=== PATIENT | female | born 2005 | race Caucasian/White ===

== ENCOUNTER 2023-06-03 13:15 | Outpatient (REF) | payer OTHER, SELFPAY ==
[2023-06-04 23:30] LABS: Prolactin 20.5 ng/mL (2.8-29.2)
== END 2023-06-03 13:16 | disposition home or self-care (01) ==
LOC: NPINS 13:15
PROVIDERS: Visit Provider Internal Medicine Endocrinology, Diabetes & Metabolism
DX: E22.1 Hyperprolactinemia (principal)
CPT/HCPCS: 84146

== ENCOUNTER 2023-07-01 10:57 | Outpatient (REF) | payer OTHER, SELFPAY ==
[2023-07-03 12:38] LABS: Prolactin 8.5 ng/mL (2.8-29.2)
== END 2023-07-01 10:58 | disposition home or self-care (01) ==
LOC: NPINS 10:57
PROVIDERS: Visit Provider Internal Medicine Endocrinology, Diabetes & Metabolism
DX: E22.1 Hyperprolactinemia (principal)
CPT/HCPCS: 84146

== ENCOUNTER 2024-08-27 09:08 | Outpatient (CLI) | payer OTHER, SELFPAY | END 2024-08-27 09:09 | disposition home or self-care (01) | PROVIDERS: PCP Internal Medicine Endocrinology, Diabetes & Metabolism; Visit Provider Internal Medicine Endocrinology, Diabetes & Metabolism | DX: E22.1 Hyperprolactinemia (principal) | CPT/HCPCS: 36415; 84146 ==

== ENCOUNTER 2025-05-14 09:28 | Outpatient (REF) | payer OTHER, SELFPAY ==
--- OUTSIDE RECORDS SUMMARY | 2025-05-15 00:08 | XMS_ITS | Clinical Summary ---
Author Organization [facility] Address [id number] [address] Care Team Providers Care Digital Archivist Name Role Phone Yola Varma MD Primary Care Provider [phone] Source Comments You are receiving this document as you are listed as the primary care provider,follow-up provider, or the patient has been referred to you for consultation.This is in compliance with the Medicare and[facility]centive [facility],which states Providers who transition their patient to another setting of careor provider of care or refers their patient to another provider of care shouldprovide summary care record for each transition of care or referral. Synthorx Medications AMNESTEEM 40 MG capsule Take 40 mg by mouth daily. 1 Active mupirocin (BACTROBAN) 2 % ointment APPLY 2 TO 3 TIMES DAILY TO AREAS WITH SKIN INFECTION 1 Active tretinoin (RETIN-A) 0.025 % cream Apply topically every evening. Active spironolactone (ALDACTONE) 50 MG tablet Take 1 Tablet (50 mg) by mouth two times a day. Active Active Problems Problem Noted Date Diagnosed Date Abnormal ultrasound of pelvis 09/17/2021 Irregular uterine bleeding 09/17/2021 Family history of PCOS 09/17/2021 Vaginal bleeding between periods 06/21/2021 Asthma 05/18/2019 Immunizations Immunization Administration Dates Next Due 4vHPV (Gardasil) 08/17/2014,04/14/2014 9vHPV (Gardasil 9) 08/08/2015 DTaP 05/07/2008, 5,2003,2002,2003 Flu Vac (3+ yrs) 07/02/2007,06/28/2004 HepA Ped/Adol (1-18 yrs) 04/14/2014,05/01/2012 HepB Ped/Adol (0-18 yrs) 11/20/2004 Hib (ActHIB) 04/06/2004 Hib/HBV 2003,2003 IPV (Polio) 05/07/2008, 4,2003,2002 Influenza IIV4 (Quadrivalent ) 0.5mL (84296) 05/30/2021,04/29/2020,11/09/2019 Influenza LAIV (Nasal, 2-49 yrs) 015,06/02/2013,06/12/2010,2008 Influenza LAIV3 2-49 years (Flumist) 05/01/2012, 06/12/2010,05/07/2008 Influenza, Unspecified Formulation 06/01/2009 MCV4 Menveo 2m.+ (two vial) 11/09/2019, 4 MMR 04/13/2009,02/05/2005 Pfizer Monovalent 12+ Purple Top 12/22/2020,11/16 Pneumococcal 7, PED 08/22/2004,2003,2002 Tdap 04/14/2014 Varicella 05/09/2010,04/13/2009,10/21/2006 Family History Medical History Relation Name Comments Depression Father Hypertension Father Anxiety Mother Alzheimer's Maternal Grandmother Anxiety Maternal Grandmother Cancer, Other Maternal Grandmother Cancer, Thyroid Maternal Grandmother Dementia Maternal Grandmother Cancer, Melanoma Paternal Grandfather Diabetes, Type II Paternal Grandfather Dementia Paternal Grandmother Cancer, Colon Paternal Uncle Amblyopia/Strabismus Negative Family History Cataract Negative Family History Diabetes Negative Family History Glaucoma Negative Family History Macular Degeneration Negative Family History Retinal Detachment Negative Family History Relation Name Status Comments Father Alive Mother Alive Maternal Grandfather Maternal Grandmother Alive Paternal Grandfather Alive Paternal Grandmother Paternal Uncle Social History Tobacco Use Types Packs/Day Years Used Date Smoking Tobacco: Never Smokeless Tobacco: Never Alcohol Use Standard Drinks/Week Comments Never 0 (1 standard drink = 0.6 oz pur e alcohol) PHQ-2 Answer Date Recorded PHQ-2 Score 2 05/30/2021 Comments No Sex and Gender Information Value Date Recorded Sex Assigned at Female 08/22/2021 8:49 PM COUNSELOR EDUCATION PROFESSOR Legal Sex Female 6:04 AM CDT Gender Identity Female 08/22/2021 8:49 PM COUNSELOR EDUCATION PROFESSOR Sexual Orientation Don't know 08/22/2021 8: 49 PM COUNSELOR EDUCATION PROFESSOR Last Filed Vital Signs Vital Sign Reading Time Taken Comments Blood Pressure 119/71 06/21/2021 4:03 PM CDT Pulse 72 06/21/2021 4:03 PM CDT Temperature - - Respiratory Rate - - Oxygen Saturation - - Inhaled Oxygen Concentration - - Weight 77.1 kg (170 lb) 08/13/2021 1:10 PM COUNSELOR EDUCATION PROFESSOR p t reported Height 166.4 cm (5' 5.5) 08/13/2021 1:10 PM COUNSELOR EDUCATION PROFESSOR Body Mass Index 27.86 08/13/2021 1:10 PM COUNSELOR EDUCATION PROFESSOR Plan of Treatment Health Maintenance Due Date Last Done Comments Cervical Cancer Screening Due 2003 Chlamydia 2003 Hep C Screening (Preventive Services) 2003 MenB Immunization Discussion 2003 Asthma ACT (score of 20 or higher) 2007 HIV Screening (Preventive Services) 2019 Adult Preventive Visit 2021 COVID-19 Vaccine ( season) 2025 05/29/2022, 07/23/2021, 12/22/2020, Additional history exists Influenza Vaccine (#1) 2025 , 05/30/2021, 04/29/2020, Additional history exists DTaP/Tdap/Td Vaccine (8 - Tdap) 11/14/2032 11/14/2022, 04/14/2014, 05/07/2008, Additional history exists Zoster/Shingles Vaccine (1 of 2) 2053 Hib Vaccine Completed 04/06/2004, 07/18, 2003 Pneumococcal Vaccine Aged Out 08/22/2004, 2003, 2003 No longer eligible based on patient's age to complete this topic HepB Vaccine Completed 11/20/2004, 07/18, 2003 IPV (Polio) Vaccine Completed 05/07/2008, 2003, 2003, Additional history exists Varicella Vaccine Completed 05/09/2010, , 10/21/2006 HepA Vaccine Completed 04/14/2014, 05/01/2012 HPV Vaccine Completed 08/08/2015, 07/20, 04/14/2014 MCV4 Vaccine Completed 11/09/2019, 04/14/2014 Insurance SEL[employer]GED C[employer] Care Teams Digital Archivist Relationship Specialty Start Date End Date Yola Varma MD [id number] [place] [id number] PCP - General 08/09/14
--- OUTSIDE RECORDS SUMMARY | 2025-05-15 00:08 | XMS_ITS | Data Portability ---
Author Organization [facility] [employer], [id number] Address [address] [place] [address] Care Team Providers Care Picker / Packer Name Role Phone PEBBLES BOLDEN Primary Care Provider Assessment Encounter Date Assessment Date Assessment LastModified by Organization Details LastModified Time 12/09/2022 12/09/2022 This service was provided using telemedicine including synchronous audio and/or video approved technology. The patient verbally Consents to telemedicine services, virtual check-ins and evisits. The patient confirms she is at home or private location Telemedicine consultation via Synchronous Audio and Video Call. I spent a total of 35 minutes providing care for this patient including: preparing to see the patient, obtaining a medical history, completing a medically appropriate physical exam, completing documentation of visit information and plans in the EMR, counseling the patient and/or caregiver regarding her diagnosis, treatment options and follow up plans, as well as any necessary communication of subsequent test results to the patient, , , Assessment and Plan for this visit include the following: I spent a total of minutes providing care for this patient including: preparing to see the patient, obtaining a medical history, completing a medically appropriate physical exam, completing documentation of visit information and plans in the EMR, counseling the patient and/or caregiver regarding her diagnosis, treatment options and follow up plans, as well as any necessary communication of subsequent test results to the patient, , , [email or web address] Not available 12/09/2022 12:01:55 Plan of Treatment Reminders Order Date Submit Date Provider Last Modified By Organization Details Last Modified Time Details Appointments None recorded. Lab test, urine 2024 025 [email or web address] [id number] aska, [address] [facility], [address], [place], [address], 08:11:37 Pap test, slide(s), cervical [address] [facility], [address], [address], [place], [address], 11:07:23 prolactin, serum [address] [facility], [address], [address], [place], [address], 01:45:41 TSH, serum or plasma [address] [facility], [address], [address], [place], [address], 01:45:37 Referral None recorded. Procedures None recorded. Surgeries None recorded. Imaging None recorded. Medication Orders Cytotec 200 mcg tablet 2024 025 [id number], [address] [place], [place], [id number], 15:16:59 Patient TargetsNo targets recorded. Patient Instructions Encounter Date Encounter Id Patient Instructions Last Modified By Organization Details Last Modified Time 11/14/2022 [id number] Please monitor your blood pressure. If either number continues to be elevated above 140 and/or 90, then I would recommend making an appointment with a primary doctor for evaluation. [email or web address] Not available 11/14/2022 14:57:52 - Encouraged breast self-awareness and monthly breast exams. - Calcium and vitamin D intake discussed. - Encouraged regular exercise. - Discussed cervical cancer screening guidelines. [email or web address] Not available 11/14/2022 13:38:25 Reason for Referral None Reported. Results Created Date Observation Date Name Description Value Unit Range Abnormal Flag Note LastModifiedBy Organization Detail LastModifiedTime 11/15/1911/14/2022 TSH WITH REFLE X TO FREE T4 TSH 2.05 uIU/m L 0.50-4 .30 Not Available [facility] [address], [place], [address], 11/15/2022 01:45:37 11/15/19 23 11/14/2022 PROLA CTIN LEVEL prolactin 37 NG/mL 5-23 high Not Available [facility] [address], [place], [address], 11/15/2022 01:45:41 09/22/19 25 09/22/2024 GYNEC OLOGI C CYTOL OGY PAP SMEAR gynecologic cytology SEE RESULT S BELOW SPECI MEN SOURC E [facility] Cervi x BKR LAB AP TRANSPORT RN INTER PRETA TION: Negat shahid for Intra epith elial Lesmichael n or John caro (NILM ) Elect charbel lawson beatriz d by Brian Dejesus, CT (ASCP ) on 2024 at 10:05 AM Path repor [email or web address] ments Imp Spec: Papan icola ou Test Limit ation s: Cervi michelle cytol ogy is a scree cassandra test with limit ed sensi tivit y, and regul ar scree cassandra is criti michelle for cance r preve ntion . Pap tests are prima rily effec tive for the diagn osis/ preve ntion of squam ous cell carci noma, not adeno carci noma or other cance rs. BKR LAB AP TRANSPORT RN ADEQU ACY: Satis facto ry for evalu ation , endoc ervic al/tr ansfo rmati on zone compo nent absen t Path repor t.rel evant Hx Spec: none BKR LAB AP LMP: BKR LAB AP HPV REFLE X: Yes if ASCUS BKR LAB AP PREVI OUS ABNOR MAL: No BKR LAB AP PREVI OUS ABNL DX: N/A Path repor [email or web address] ments Imp Spec: The techn ical compo nent of this testi ng was compl eted at [facility] . Stain contr ols for all stain s resul blanka withi n this repor t have been revie wed and show appro priat e react ivity . Not Available [address], [place], [address], 09/27/2024 11:07:23 09/22/19 25 09/22/2024 pregn russell test, urine Unknown Analyte negati ve Not Available [address], [place], [address], 09/22/2024 15:22:17 09/22/1909/22/2024 pregn russell test, urine Unknown Analyte Negati ve Not Available [address] ask [address] [facility] [address], [place], [address], 09/22/2024 15:22:17 Result Notes None recorded. Problems Name Problem SNOMED Code Status Onset Date Resolution Date Notes Provider Name and Address Organization Details Recorded Time Acne 58900880 Active 022 Crissy carranza [place] - [facility] [employer] 2 15:19:52 Irregular periods 34854103 Active 023 COREY HOLM [facility] [address] [facility],[address], [place], [address] , [facility] [employer] 3 14:50:17 Problem Notes None recorded. Procedures Surgical History Date Name Laterality Status Provider Name and Address Organization Details Recorded Time 5 IUD Insertion Procedure Note ([facility]) [place] [id number] [facility],[address], [place], [address], [facility] [employer] 09/24/2024 15:27:19 5 Date of Last Pap Smear completed Holden Wilkerson [place] [facility] [employer] 09/27/2024 13:54:26 extraction of wisdom tooth completed Margarita Hedrick (TERMED) [facility] [employer] 10/23/2021 15:29:13 Imaging Results None recorded. Procedure Notes None recorded. Medical Equipment None Reported. Allergies Allergen ID Allergen Name Allergen Category Reaction Reaction Severity Criticality Documentation Date Start Date Code Code System Note Provider Name and Address Organization Details Recorded Time [id number] cat dander environme nt itching Not available Not available 10/23/2021 [place] [facility] [employer] 15:19:26 No known drug allergies Medications Name Sig Start Date Stop Date Status Note LastModified by Organization Details LastModified Time tretinoin 0.025 % topical cream APPLY TOPICALLY TO THE AFFECTED AREA EVERY NIGHT TOLERATED 09/18 completed Not Available Not Available Not Available tretinoin 0.05 % topical cream APPLY PEA SIZED AMOUNT TOPICALLY TO FACE EVERY NIGHT TOLERATED . FOLLOW WITH MOISTURIZ ER active Not Available Not Available No t Available cephalexin 500 mg capsule TAKE ONE CAPSULE BY MOUTH BY MOUTH THREE TIMES DAILY UNTIL GONE 10/23 completed Not Available Not Available Not Available misoprostol 200 mcg tablet Take 2 tablets by oral route as directed. 09/22 completed Not Available Not Available Not Available mupirocin 2 % topical ointment APPLY 2 TO 3 TIMES DAILY TO AREAS WITH SKIN INFECTION 10/23 completed Not Available Not Available Not Available bromocripti ne 2.5 mg tablet TAKE ONE-HALF TABLET BY MOUTH DAILY active Not Available Not Available No t Available spironolact one 50 mg tablet TAKE 1 TABLET BY MOUTH IN THE AM AND 2 IN THE EVENING active Not Available Not Available No t Available clindamycin 1 % lotion APPLY THIN LAYER TOPICALLY TO FACE EVERY DAY IN THE MORNING 11/13 completed Not Available Not Available Not Available Amnesteem 40 mg capsule TAKE 1 CAPSULE BY MOUTH TWICE DAILY 10/23 completed Not Available Not Available Not Available metronidazo le 1 % topical gel APPLY TOPICALLY TO FACE EVERY MORNING active Not Available Not Available No t Available chlorhexidi ne gluconate 0.12 % mouthwash 10/23 completed Not Available Not Available Not Available Claravis 30 mg capsule TAKE 2 CAPSULES BY MOUTH TWICE DAILY FOR ACNE 10/23 completed Not Available Not Available Not Available Kyleena 17.5 mcg/24 hr (up to 5 years) 19.5 mg intrauterin e device Take by intrauter ine route. 2024 active Not Available Not Available Not Avai lable ID NOW COVID-19 Test Kit TEST DIRECTED 10/23 completed Not Available Not Available Not Available Vitals Date Recorded Body height Body mass index (BMI) Body weight Systolic And Diastolic Provider Name and Address Organization Details Last Updated DateTime 09/21/2024 165.1 cm 31.4 kg/m2 16593.52 g 132/82 mm[Hg] Emilyvalencia Jaramillo (TERMED) [facility] [employer] 09/21/2024 14:11:24 Date Recorded Body height Body mass index (BMI) Body weight Systolic And Diastolic Provider Name and Address Organization Details Last Updated DateTime 09/22/2024 165.1 cm 31.8 kg/m2 56561.14 g 128/86 mm[Hg] Jadyn Wilkerson [facility] [employer] 09/22/2024 15:22:57 Date Recorded Body weight Body mass index (BMI) Body mass index (BMI) [Percentile] Per age and sex Body height Systolic And Diastolic Provider Name and Address Organization Details Last Updated DateTime 11/14/2022 08634.0 3 g 29.8 kg/m2 93 % 165.1 cm 140/78 mm[Hg] Margarita Hedrick (TERMED) [facility] [employer] 14:25:47 Date Recorded Body height Body mass index (BMI) Body weight Systolic And Diastolic Provider Name and Address Organization Details Last Updated DateTime 11/16/2024 165.1 cm 31.5 kg/m2 33521.39 g 140/80 mm[Hg] Alana Story [facility] [employer] 11/16/2024 16:43:24 Date Recorded Body height Provider Name an d Address Organization Details Last Updated DateTime 12/09/2022 165.1 cm Jadyn Wilkerson [facility] OB/G YN 12/09/2022 11:28:50 Social History Question Answer Notes LastModified by Organizat ion Details LastModified Time Tobacco Smoking Status Never Smoker Crissy carranza, [facility] [employer] 10/23/2021 15:19:26 Do You Have An Advance Directive? No Information not available 09/21/2024 What Is Your Level Of Caffeine Consumption? Occasional Information not available 09/21/2024 What Type Of Diet Are You Following? REGULAR [email or web address] Information not available 11/14/2022 How Many Times Per Week Do You Exercise? 3-4 Times Per Week [email or web address] Information not available 11/14/2022 History Of Domestic Violence No [email or web address] Information no t available 11/14/2022 What Is Your Relationship Status? Single Information not available 10/23/2021 Are You Sexually Active? No Information not available 10/23/2021 Sex: Unknown Functional Status Question Answer Note LastModified by Organizat ion Details LastModified Time Do you use any illicit or recreational drugs? No Information not available 09/21/2024 Do you or have you ever used any other forms of tobacco or nicotine? No Information not available 09/21/2024 What is your level of alcohol consumption? None [email or web address] Information not available 10/23/2021 What is your occupation? Student Information not available 09/21/2024 Do you or have you ever used e-cigarettes or vape? Never used electronic cigarettes Information not available 09/21/2024 What is your exercise level? Moderate [email or web address] Information not available 11/14/2022 Mental Status None recorded. Family History Relationship Description Onset Age of this Age Resolved Age Notes LastModified by Organization Details LastModified Time Paternal Grandfather Hypertensive disorder eayotte Not available 2021 15:19:26 Father Depressive disorder eayotte Not available 2021 15:19:26 Father Hypertensive disorder eayotte Not available 2021 15:19:26 Maternal Grandfather Diabetes mellitus eayotte Not available 2021 15:19:26 Maternal Grandfather Heart disease pt. added direct ly (09/18) [email or web address] Not available 09/18/2024 17:48:01 Unspecified Relation Pulmonary embolism 30 Patern al cousin - cause of (was on contro l) [email or web address] Not available 11/16/2024 16:31:19 Maternal Grandmother Disorder of thyroid gland pt. added direct ly (09/18) [email or web address] Not available 09/18/2024 17:47:31 Paternal Uncle Cerebrovascu lar accident pt. added direct ly (09/18) [email or web address] Not available 09/18/2024 17:47:46 Medical History Condition Response Dermatology-Acne Y Psych- Anxiety Disorder Y Pulmonary- Asthma Y Gynecological History Statement/Question Response Sexually Active N History of Abnormal PAP N Date of LMP 10/01/2024 Y History of Sexually Transmitted Infectio n N HPV Vaccine Complete Current Control Method IUD Menstrual Cycle Length (days) 28 Date of Last Pap Smear 09/22/2024 13 Obstetrics History GPAL:G 0 P 0 0 0 0 Type Value Multiple Births 0 Full Term 0 Induced 0 Spontaneous 0 Premature 0 Living 0 Ectopics 0 Total 0 Immunizations Vaccine Type Date Status Note Provider Nam e and Address Organization Details Recorded Time Tdap 3 completed Kenisha Matt null, [place] - [facility] [employer] 11/14/2022 16:48:57 Hib-Hep B 3 completed Emily Jaramillo (TERMED) [place], [place] [facility] [employer] 09/20/2024 14:38:36 Hib-Hep B 3 completed Emily Jaramillo (TERMED) [place], [place] [facility] 09/20/2024 14:38:36 HPV9 5 completed Emily Jaramillo (TERMED) [place], [place] [facility] [employer] 09/20/2024 14:38:36 IPV 4 completed Emily Wesleygness (TERMED) [place], [place] [facility] [employer] 09/20/2024 14:38:36 IPV 8 completed Emily Wesleygness (TERMED) [place], [place] [facility] 09/20/2024 14:38:36 IPV 3 completed Emily Jaramillo (TERMED) [place], [place] [facility] [employer] 09/20/2024 14:38:36 IPV 3 completed Emily Wesleygness (TERMED) [place], [place] [facility] [employer] 09/20/2024 14:38:36 Influenza, live, trivalent, intranasal, PF 2 completed Emily Jaramillo (TERMED) null, [place] - [facility] [employer] 09/20/2024 14:38:36 Influenza, live, trivalent, intranasal, PF 8 completed Emily Kregness (TERMED) null, [facility] 09/20/2024 14:38:36 Influenza, live, trivalent, intranasal, PF 0 completed Emily Kregness (TERMED) null, [facility] 09/20/2024 14:38:36 MMR 5 completed Emily Kregness (TERMED) null, [facility] 09/20/2024 14:38:36 MMR 9 completed Emily Kregness (TERMED) null, [facility] 09/20/2024 14:38:36 COVID-19, mRNA, LNP-S, PF, 30 mcg/0.3 mL dose 1 completed Emily Kregness (TERMED) null, [facility] 09/20/2024 14:38:37 COVID-19, mRNA, LNP-S, PF, 30 mcg/0.3 mL dose 1 completed Emily Kregness (TERMED) null, [facility] 09/20/2024 14:38:37 COVID-19, mRNA, LNP-S, PF, 30 mcg/0.3 mL dose 1 completed Emily Kregness (TERMED) null, [facility] 09/20/2024 14:38:37 COVID-19, mRNA, LNP-S, bivalent, PF, 30 mcg/0.3 mL dose 2 completed Emily Kregness (TERMED) null, [facility] 09/20/2024 14:38:37 pneumococcal conjugate PCV 7 5 completed Emily Kregness (TERMED) null, [facility] 09/20/2024 14:38:37 pneumococcal conjugate PCV 7 3 completed Emily Kregness (TERMED) null, [facility] 09/20/2024 14:38:37 pneumococcal conjugate PCV 7 3 completed Emily Kregness (TERMED) null, [place] - [facility] [employer] 09/20/2024 14:38:37 influenza, unspecified formulation 9 completed Emily Kregness (TERMED) null, [facility] [employer] 09/20/2024 14:38:37 Tdap 4 completed Emily Kregness (TERMED) null, [facility] 09/20/2024 14:38:37 varicella 7 completed Emily Kregness (TERMED) null, [facility] [employer] 09/20/2024 14:38:37 varicella 9 completed Emily Kregness (TERMED) null, [facility] [employer] 09/20/2024 14:38:37 varicella 0 completed Emily Kregness (TERMED) null, [facility] 09/20/2024 14:38:37 Influenza, split virus, trivalent, preservative 4 completed Emily Kregness (TERMED) null, [facility] [employer] 09/20/2024 14:38:37 Influenza, split virus, trivalent, preservative 7 completed Emily Kregness (TERMED) null, [facility] 09/20/2024 14:38:37 HPV, quadrivalent 4 completed Emily Kregness (TERMED) null, [facility] [employer] 09/20/2024 14:38:37 HPV, quadrivalent 4 completed Emily Kregness (TERMED) null, [facility] [employer] 09/20/2024 14:38:37 Hep B, adolescent or pediatric 5 completed Emily Kregness (TERMED) null, [facility] [employer] 09/20/2024 14:38:37 Hep A, ped/adol, 2 dose 4 completed Emily Kregness (TERMED) null, [facility] [employer] 09/20/2024 14:38:37 Hep A, ped/adol, 2 dose 2 completed Emily Kregness (TERMED) null, [place] - [facility] 09/20/2024 14:38:37 Hib (PRP-T) 4 completed Emily Kregness (TERMED) [place], [place] [employer] 09/20/2024 14:38:37 Meningococcal MCV4O 0 completed Emily Kregness (TERMED) [place] [employer] 09/20/2024 14:38:37 Meningococcal MCV4O 4 completed Emily Kregness (TERMED) [place] [employer] 09/20/2024 14:38:37 DTaP 4 completed Emily Kregness (TERMED) [place], [place] [employer] 09/20/2024 14:38:37 DTaP 5 completed Emily Kregness (TERMED) null, [place] - [facility] 09/20/2024 14:38:37 DTaP 8 completed Emily Kregness (TERMED) [place], [place] [employer] 09/20/2024 14:38:37 DTaP 3 completed Emily Kregness (TERMED) [place] [employer] 09/20/2024 14:38:37 DTaP 3 completed Emily Kregness (TERMED) [place] [employer] 09/20/2024 14:38:37 Influenza, live, quadrivalent, intranasal 3 completed Emily Kregness (TERMED) [place] [facility] [employer] 09/20/2024 14:38:37 Influenza, live, quadrivalent, intranasal 5 completed Emily Kregness (TERMED) [place], [place] [employer] 09/20/2024 14:38:37 Influenza, split virus, quadrivalent, PF 0 completed Emily Kregness (TERMED) [place], [place] [employer] 09/20/2024 14:38:37 Influenza, split virus, quadrivalent, PF 0 completed Emily Kregness (TERMED) null, [facility] [employer] 09/20/2024 14:38:37 Influenza, split virus, quadrivalent, PF 2 completed Emily Kregness (TERMED) null, [facility] [employer] 09/20/2024 14:38:37 Influenza, split virus, quadrivalent, PF 1 completed Emily Kregness (TERMED) null, [facility] [employer] 09/20/2024 14:38:37 meningococcal B, OMV 4 completed Jadyn Oestreich null, [facility] [employer] 09/22/2024 15:16:42 meningococcal B, OMV 4 completed Jadyn Oestreich null, [facility] [employer] 09/22/2024 15:16:42 COVID-19, mRNA, LNP-S, PF, jacques-sucrose, 30 mcg/0.3 mL 3 completed Jadyn Oestreich null, [facility] [employer] 09/22/2024 15:16:42 Influenza, split virus, quadrivalent, PF 3 completed Jadyn Oestreich null, [facility] [employer] 09/22/2024 15:16:42 Influenza, MDCK, trivalent, PF 5 completed Jadyn Oestreich null, [facility] [employer] 09/22/2024 15:16:42 Past Encounters Encounter ID Performer Location Encounter Start Date Encounter Closed Date Diagnosis/Indication Diagnosis SNOMED-CT Code Diagnosis ICD10 Code Diagnosis IMO Codes Diagnosis Note [id number] JUANA FARRELL MD [id number] T_[facility] NKA [address] [facility] [address] [place] [address] 10/23/2021 15:07:56 10/23/2021 16:24:04 Irregular periods 26033981 N92.6 Reviewed diagnosis of PCOS. Discussed implicatio ns for marketing content specialist health including adverse lipid effects and increased risk of Type II diabetes. Reviewed risks of endometria l hyperplasi a and the need for menses at least every 3 months for endometria l protection . Will check labs for PCOS today and have patient return for pelvic US. [id number] JUANA FARRELL MD [id number] [address] [facility] [address] [place] [address] 11/14/2022 14:13:02 11/14/2022 14:56:04 Gynecologic examination 48615742 Z01.419 Pap not indicated. Reviewed vaccines. UTD. Pt checking insurance for TDAP vaccine. Can come back to clinic for TDAP if covered. Acne 89303409 L70.9 Working with dermatolog y. Irregular periods 643832 07 N92.6 Discussed etiologies of irregular periods. Pt hx of hyperprola ctinemia.W ill draw hormones for irregular cycles. Rec. she follow up with endocrine if prolactin still elevated.D iscussed spironolac tone can cause irregulari ties in cycle as well.Given informatio n on hormonal therapies for cycles. Pt uninterest ed in this time. Elevated blood-pressure reading without diagnosis of hypertension 145641815 R03.0 Discussed BP elevated last and this year. Fam hx of hypertensi on.Pt father has BP cuff at home. Recommend she take a few at home and follow up if Bps elevated. [id number] COREY HOLM, ROHIT- [id number] T_[facility] [address] [facility],[place] [address] [place] [address] 12/09/2022 11:18:08 12/09/2022 12:19:00 Contraception education 181551286 Z30.09 We discussed control options including hormonal IUD s , copper IUD, implantabl e savanna, oral contracept shahid pills, Depo-Prove ra, a progestin- only pill, vaginal rings, and condoms. The risks and benefits of each option where discussed with the patient.Pt had nml BPs with home monitoring .Discussed hyperprola ctinemia can cause menstrual irregulari ties - appt w/ endo in December.Intere sted in IUD or OCP/POP. Will reach out with what option she desires. Discussed Mirena, Kyleena, and Paragard IUD's. Discussed common side effects and risks of each. Reviewed common bleeding patterns. Discussed the insertion process. Recommend she check insurance coverage prior to insertion. If she wants to proceed, she will call for an appointmen t during her menses. Planning Kyleena IUD. [id number] JUANA FARRELL MD [id number] DEYANIRA KUMAR [address] [facility] [address] [place] [address] 09/21/2024 13:59:07 09/21/2024 15:32:51 Contraception education 557369127 Z30.09 Discussed risks and benefits of Kyleena IUD. Reviewed common bleeding patterns. Discussed insertion process. Reviewed risks of bleeding, infection, and uterine perforatio n. Recommend she check insurance coverage prior to insertion. If she wants to proceed, she will call for an appointmen t during her menses. [id number] JUANA FARRELL MD [id number] T_[place] [address] [facility] [address] [place] [address] 09/22/2024 15:00:17 09/22/2024 15:39:16 Insertion of intrauterine contraceptive device [id number] Z30.430 IUD inserted today without difficulty . Counseled on expectatio ns for bleeding and cramping. Discussed reasons to call or return to clinic. Screening for malignant neoplasm of cervix [id number] Z12.4 [id number] JUANA FARRELL MD [id number] [facility] [address] [facility] [address] [place] [address] 11/16/2024 16:31:12 11/16/2024 17:33:48 IUD check [id number] Z30.431 Strings seen today. Discussed bleeding, starting to slow. Will monitor over next two weeks and call to schedule pelvic ultrasound if it is not improving significan tly. Health Concerns Section Related Observation LastModified by Organization Detai ls LastModified Time None Recorded Concern Status LastModified by Organization Details LastModified Time None Recorded Advance Directives Directive N: Payers Insurance Date Sequence Insurance Name Policy Number Policy [place] Covered Member ID [place] Member ID Guarantor Name 11/16/2024 1 [id number] Alesia Ring h [id number] Alesia Felix Notes Date Note Type Note Provider Name and Address Organization Details Recorded Time 11/15/19 23 text/htm l Annual Premenopausal ([facility])Reported by PatientHPIFor patient relationship to practice, patient reportsestablished patient. For current medical history, patient reportsno active medical problems. For relevant family history, patient reportsno family history of breast cancer,no family history of ovarian cancer,no family history of uterine cancer,no family history of colon cancer, andno family history of blood clots/dvt. For menstrual history, patient reportsfrequency of menses: monthly. For contraceptive method, patient reportsabstinenceandnothing. For sexually active, patient reportsno: by choice. For sti screen, patient reportsdeclines. For pap smear +/- hpv cotesting, patient reportsnot applicable.Pt would like the tdap vaccine today. She is wondering what other vaccines she might be needing. Pts derm recommended genetic testing for clotting disorders. Pt reports her cycle has been somewhat irregular the past two months after starting spironolactone. Pt had elevated prolactin at her last visit with us- she never ended up seeing endocrine; AH/MA Going to school at [employer].Irregular periods. Periods have always been irregular. Days range from 14-35 days. lasting 6-8 days.Not sexually active.Feels like spironlactone made periods more irregular.Cousin had PE on OCP and passed. Wants testing done for blood clotting disorders.Last year elevated prolactin. Never followed up with Endocrine.Would like to discuss vaccinations. Hereditary Cancer Risk AssessmentHPI.LowRisk The patient completed the familial health questionnaire. She is at low risk for a genetic cancer syndrome. Imported from [employer] on 11/14/2022 COREY HOLM, [facility] [address] [facility],[address], [place], [address], [place] - [facility] [employer] 11/14/2022 16:45:07 12/10/19 23 text/htm l Telemedicine HPI UEHRCReported by PatientHPIFor telehealth visit for, patient reportscontraception care. For modality, patient reportsunified secure nurys. For patient information verified, patient reportspatient name gilda radford-paytonverified,patient 2003verified, andpatient call back number verified. Contraception Counseling ([facility])Reported by PatientHPIFor reason for visit, patient reportsdesires contraceptive method. For current contraception, patient reportsnothing. For previously tried methods, patient reportsnothing.Patient states her periods are very sporadic and spotting; Patient would like her periods to be more regular; Jadyn Masters/IKE Questions about frequent periods and current medications. Pt interested in contraception for regulating cycles. Wondering SE and half-way effects.Appointment with endocrine at end of December.Questions about PCOS and lab results.Family had factor V testing - all negative. COREY HOLM, [facility] [address], [place], [address], [place] - [facility] [employer] 12/09/2022 14:03:11 09/21/19 25 text/htm l Contraception Counseling ([facility])Reported by PatientHPIFor reason for visit, patient reportsdesires contraceptive method. For current contraception, patient reportsabstinence. For previously tried methods, patient reportsabstinenceandcondoms. For * context, patient reportscurrently sexually active no (long distance partner). For * associated signs and symptoms, patient reportsno heavy menses,regular menses,no dysmenorrhea,no pms,no painful intercourse, andno menopausal symtpoms(last 7 days, around 16 days in between periods). For special considerations, patient reportspersonal history of breast cancer no,history of dvt/pe no,history of blood clotting disorders no,history of migraines with aura no,liver disease no,hypertension no,cardiac disease no,smoker no, andhistory of psychiatric illess no (anxiety).Has pituitary microadenoma, was on bromocriptineROS as noted in the HPI Pt presents to discuss [place] [address], [place], [address], [place] - [facility] [employer] [employer] [facility] 09/23/2024 09:31:14 09/22/19 25 text/htm l ROS as noted in the HPI Patient presents for IUD insertion; [place] [address], [place], [address], [place] - [facility] [employer] [employer] [facility] 09/24/2024 15:28:03 11/17/19 25 text/htm l IUD Follow-Up ([facility])Reported by PatientHPIFor patient presents for, patient reportsfollow-up problem. For iud, patient reportskyleena. For presenting symptoms, patient reportsvaginal bleeding: yes. For *duration, patient reports1 months. For *timing, patient reportsconstant. For *severity, patient reportsmild.ROS as noted in the HPI Patient present today for IUD check, has not stopped bleeding since insertion, and left breast nipple tenderness. [place], [place] [address] [facility],[address], [place], [address], [place] - [facility] [employer] 11/17/2024 18:09:59 OBGyn Episode No OBEpisode recorded.
--- OUTSIDE RECORDS SUMMARY | 2025-05-15 00:08 | XMS_ITS | Clinical Summary ---
Author Organization [facility] Address [address] [place] [address]. [place] [address] Care Team Providers Care Pulp Drier Firer Name Role Phone Kristi Carbajal MD Unavailable [phone] Yola Varma MD Primary Care Provider [phone] Allergies No known active allergies Social History Tobacco Use Types Packs/Day Years Used Date Smoking Tobacco: Never Assessed Adolescent Education Answer Date Record ed Getting School Help Needed Not on file 05/10 Comments Unknown Sex and Gender Information Value Date Recorded Sex Assigned at Female 11/25/2021 8:22 PM CDT Legal Sex Female 8:28 AM CDT Gender Identity Female 11/25/2021 8:22 PM CDT Sexual Orientation Don't know 11/25/2021 8: 22 PM CDT Plan of Treatment Health Maintenance Due Date Last Done Comments ADVANCE CARE PLANNING 2003 ANNUAL REVIEW OF HM ORDERS 2003 CHLAMYDIA SCREENING 2003 HIV SCREENING 2018 HEPATITIS C SCREENING 2021 YEARLY PREVENTIVE VISIT 11/15/2023 11/14/2022 MENINGITIS B VACCINE (2 of 2 - Bexsero SCDM 2-dose series) 06/16/2024 12/16/2023 PHQ-2 (once per calendar year) 2024 COVID-19 VACCINE ( season) 2025 05/21/2023, 05/29/2022, 07/23/2021, Additional history exists INFLUENZA VACCINE (#1) 2025 , 05/29/2022, 05/30/2021, Additional history exists PAP 09/22/2027 09/22/2024 DTAP/TDAP/TD VACCINE (8 - Td or Tdap) 11/14/2032 11/14/2022, 04/14/2014, 05/07/2008, Additional history exists ZOSTER VACCINE (1 of 2) 2053 PNEUMOCOCCAL VACCINE: PEDIATRICS (0 to 5 YEARS) AND AT-RISK PATIENTS (6 to 49 YEARS) Aged Out 08/22/2004, 2003, 2003 No longer eligible based on patient's age to complete this topic HEPATITIS B VACCINE Completed 11/20/2004, 2003, 2003 HPV VACCINE Completed 08/08/2015, 07/20, 04/14/2014 MENINGITIS VACCINE Completed 11/09/2019, 04/14/2014 Procedures Procedure Name Priority Date/Time Associated Diagnosis Comments GYNECOLOGIC CYTOLOGY Routine 09/22/2024 5:19 PM EDUCATIONAL PSYCHOLOGIST Encounter for screening for malignant neoplasm of cervix from Last 3 Months or Most Recently Relevant to Health Maintenance Results * Gynecologic Cytology (PAP) (09/22/2024 5:19 PM EDUCATIONAL PSYCHOLOGIST) Interpretation Negative for Intraepithelial Lesion or Malignancy (NILM) 09/27/2024 10:05 AM EDUCATIONAL PSYCHOLOGIST [facility] at 1005 EDUCATIONAL PSYCHOLOGIST Comment Papanicolaou Test Limitations: Cervical cytology is a screening test with limited sensitivity, and regular screening is critical for cancer prevention. Pap tests are primarily effective for the diagnosis/prevent ion of squamous cell carcinoma, not adenocarcinoma or other cancers. 09/27/2024 10:05 AM EDUCATIONAL PSYCHOLOGIST [facility] Specimen Adequacy Satisfactory for evaluation, endocervical/dias sformation zone component absent 09/27/2024 10:05 AM EDUCATIONAL PSYCHOLOGIST [facility] Clinical Information none 09/27/2024 10:05 AM EDUCATIONAL PSYCHOLOGIST [facility] LMP/Menopause Date 09/07/24 09/27/2024 10:05 AM EDUCATIONAL PSYCHOLOGIST [facility] Reflex Testing Yes if ASCUS 09/27/19 10:05 AM EDUCATIONAL PSYCHOLOGIST [facility] Previous Abnormal? No 09/27/2024 10:05 AM EDUCATIONAL PSYCHOLOGIST [facility] Previous Abnormal Diagnosis N/A 09/27/2024 10:05 AM EDUCATIONAL PSYCHOLOGIST [facility] Performing Labs The technical component of this testing was completed at [facility]. Stain controls for all stains resulted within this report have been reviewed and show appropriate reactivity. 09/27/2024 10:05 AM EDUCATIONAL PSYCHOLOGIST [facility] Brushing CERVIX UTERI STRUCTURE / Unknown 09/22/2024 5:19 PM EDUCATIONAL PSYCHOLOGIST 09/22/2024 8:17 PM EDUCATIONAL PSYCHOLOGIST us Vielka Blas MD LAB - [facility] Final R esult [facility] Special[facility] [address] [facility] [address] [facility], [address] [place] [address] from Last 3 Months or Most Recently Relevant to Health Maintenance Insurance [facility] CENTERPublicBeta Care Teams Pulp Drier Firer Relationship Specialty Start Date End Date Yola Varma MD [facility] [address] [place] [id number] PCP - General 05/11/23 Kristi Carbajal MD [address] [place] [address] [address] [place] [address] Endocrinology, Diabetes, and Metabolism 11/16/21
--- OUTSIDE RECORDS SUMMARY | 2025-05-15 00:08 | XMS_ITS | Encounter Summary ---
Author Organization [facility] Address [address] [facility] [place] [address] Care Team Providers Care Shuttle Bus Driver Name Role Phone Kristi Carbajal MD Unavailable [phone] Yola Varma MD Primary Care Provider [phone] Encounter Details Date Type Department Care Team (Late st Contact Info) Description 05/27/2023 [facility] Only [facility] [address] [place] [address] Sharona Jonas MD [facility] [address] [place], [place] [id number] Hyperprolactinemia (Primary Dx) Social History Tobacco Use Types Packs/Day Years [...] Don't know 11/25/2021 8: 22 PM CDT COVID-19 Exposure Response Date Recorded In the last 10 days, have yo u been in contact with someone who was confirmed or suspected to have Coronavirus/COVID-19? No / Unsure 05/17/2023 11:37 AM CDT documented as of this encounter Plan of Treatment Not on file documented as of this encounter Visit Diagnoses Diagnosis Hyperprolactinemia- Primary Other and unspecified anterior pituitary hyperfunction documented in this encounter Care Teams Shuttle Bus Driver Relationship Specialty Start Date End Date Yola Varma MD [facility] [address] [place], [place] [address] PCP - General 05/11/23 Kristi Carbajal MD [address] [place] [address] [address] [place], [place] [id number] Endocrinology, Diabetes, and Metabolism 11/16/21 documented as of this encounter
== END 2025-05-14 09:29 | disposition home or self-care (01) ==
LOC: NPINS 09:28
PROVIDERS: Visit Provider Internal Medicine Endocrinology, Diabetes & Metabolism
DX: E22.1 Hyperprolactinemia (principal)
CPT/HCPCS: 84146